=== PATIENT | female | born 1930 | race Caucasian/White ===

== ENCOUNTER 2017-05-23 21:18 | Emergency (ER) | payer MEDICARE ==
[~2017-05-23] VITALS: Ht 142.2 cm; Wt 59.0 kg
[~2017-05-23 21:18] MED LIST: ACETAMINOPHEN PO; ALLEGRA ALLERG180 MG PO; ALLEGRA PO; AMARYL PO; AMARYL2 MG PO; AMBIEN PO; AMIODARONE PO; ARTHRITIS PAIN650 M2 PO; AVANDIA PO; BENADRYL25 MG PO; CORDARONE200 M1 PO; COUMADIN PO; COUMADIN1 MG PO; COUMADIN4 MG PO; COZAAR PO; COZAAR100 MG PO; CRESTOR PO; GLUCOPHAGE XR500 MG PO; GLYBURIDE PO; GLYNASE; HYDROCODON-ACE1 EACH PO; KEFLEX PO; LASIX PO; LEVAQUIN PO; MELATONIN3 M1 PO; METFORMIN HCL500 M1 PO; NAMENDA10 MG PO; NORCO 5/325 TAB1 TAB PO; NORVASC10 MG PO; PROTONIX PO; PROTONIX40 MG/BLIS PO; TAMIFLU75 M1 DOB; ULTRAM PO; ZITHROMAX PO; ZOCOR20 MG PO; [UNRECOGNIZED DRUG - OTHER] PO
== END 2017-05-23 22:36 | disposition left against medical advice (07) ==
LOC: CED 21:18 → CFTX 22:26 → CED 22:26 → CFTX 22:36
DX: Z53.21 Procedure and treatment not carried out due to patient leaving prior to being seen by health care provider (principal)

== ENCOUNTER 2017-05-25 21:36 | Emergency (ER) | payer MEDICARE ==
[~2017-05-25] VITALS: Ht 142.2 cm; Wt 59.0 kg
--- NOTE | ~2017-05-25 | CR72 ---
[facility] A Service of [facility] RADIOLOGY TEXT RESULTS PATIENT: SARAH FARNSWORTH LOCATION: [facility] : 32 UNIT #: [id number] AGE: [address]: Inderjit Barr MD SEX: F ORDER DR: [id number] [facility] [address] [place], [place] [address] [id number] MR#: [id number] #: [id number] NAME: SARAH FARNSWORTH : 1930 SEX: F STUDY DATE/TIME: 05/25/2017 23:00 UNIT: [facility] ROOM: STUDY DESCRIPTION: CR Chest Single View Portable Attending Physician: Inderjit Barr M.D. Ordering Physician: Inderjit Barr M.D. Primary Care Physician: Primary Care Physician No MEDICAL IMAGING REPORT This report is preliminary unless electronic signature is present EXAM Chest x-ray, 05/25/2017 HISTORY 86-year-old female in the ED complaining of 3-month history of shortness of air and chest pain. TECHNIQUE AP portable chest x-ray FINDINGS Shallow lung expansion with mild atelectasis and/or scarring in both lung bases. The lungs are otherwise clear. Mild cardiomegaly. Pulmonary vascularity is within normal limits. Accounting for differences in technique, there has been no significant change since the PA examination of 11/15/2016. IMPRESSION 1. No active disease. 2. Shallow lung expansion with scarring or atelectasis in the lung bases. Dictated by... Tristian Hester M.D. THIS IS AN ELECTRONICALLY VERIFIED REPORT Tristian Hester M.D. at 05/26/2017 3:53 PM NATHALIA/rocky TD: 05/26/2017 11:42 JOB #: [id number] MEDICAL IMAGING REPORT Page 1 of 1 COPY
--- NOTE | ~2017-05-25 | EKG ---
PATIENT: SARAH FARNSWORTH UNIT #: [id number] Ventricular Rate: 87 BPM Atrial Rate: 87 BPM P-R Interval: 234 ms QRS Duration: 84 ms Q-T Interval: 374 ms QTC Calculation(Bezet): 450 ms P Felton: 66 degrees Calculated R Felton: -25 degrees Calculated T Felton: 103 degrees Diagnosis Line: Sinus rhythm with 1st degree A-V block with Diagnosis Line: Premature atrial complexes Diagnosis Line: Minimal voltage criteria for LVH, may be normal Diagnosis Line: variant Diagnosis Line: Poor R wave progression questionable lead position Diagnosis Line: or body habitus Diagnosis Line: Nonspecific ST and T wave abnormality Diagnosis Line: Abnormal ECG Diagnosis Line: No previous ECGs available Diagnosis Line: Confirmed by JEIMY CAMACHO MD ([id number]) on Diagnosis Line: 05/27/2017 4:47:12 PM INTERPRETING MD: GILLES
[2017-05-25 23:20] LABS: POC - CKMB 1.2 ng/mL (0.0-7.9); POC - TROPONIN <0.05 ng/mL (<=0.05)
[2017-05-25 23:21] LABS: URINE SOURCE CLEAN CATCH
[2017-05-25 23:30] LABS: BASOPHIL# 0.1 X10e3 (0-0.3); BASOPHIL% 0.7 % (0-2.5); EOSINOPHIL# 0.2 X10e3 (0-0.7); EOSINOPHIL% 2.1 % (0.0-7.0); HEMATOCRIT 31.5 % (35.0-45.0); HEMOGLOBIN 10.6 gm/dL (12.0-16.0); LYMPHOCYTE# 2.2 X10e3 (1.0-3.5); LYMPHOCYTE% 26.3 % (17.0-45.0); MEAN CELL VOLUME 95.8 FL (83-96); MEAN CORPUSCULAR HEMOGLOBIN 32.2 PG (28-34); MEAN CORPUSCULAR HGB CONC 33.6 g/dL (30-36); MEAN PLATELET VOLUME 7.2 FL (6.5-11.5); MONOCYTE# 0.5 X10e3 (0-1.0); MONOCYTE% 5.5 % (3.0-12.0); NEUTROPHIL# 5.4 X10e3 (1.5-7.1); NEUTROPHIL% 65.4 % (40-75); PLATELET COUNT 336 X10e3 (140-420); RED BLOOD COUNT 3.29 X10e (3.90-5.30); RED CELL DISTRIBUTION WIDTH 14.5 % (11.0-15.5); WHITE BLOOD COUNT 8.2 X10e3 (4.0-10.5)
[2017-05-25 23:32] LABS: URINE APPEARANCE CLEAR; URINE BILIRUBIN NEG (NEG); URINE BLOOD NEG (NEG); URINE COLOR YELLOW; URINE GLUCOSE NEG (NEG); URINE KETONE NEG (NEG); URINE LEUKOCYTE ESTERASE 1+ (NEG); URINE NITRATE NEG (NEG); URINE PH 5.5 (5-8); URINE PROTEIN 1+ (NEG); URINE SPECIFIC GRAVITY 1.013 (1.003-1.035); URINE UROBILINOGEN 0.2 MG/DL (NEG)
[2017-05-25 23:36] LABS: CULTURE INDICATED? YES; URBCS1 AUWI 0-2 /[HPF] (0-2); URINE BACTERIA AUWI NEG (NEGATIVE); URINE SQUAMOUS EPITHELIAL CELL OCC /[HPF]
[2017-05-25 23:37] LABS: DIFF IND NO
[2017-05-25 23:46] LABS: URINE AMORPHOUS SEDIMENT AMORP URATES
[2017-05-25 23:54] LABS: INR 2.2; PARTIAL THROMBOPLASTIN TIME 31.4 SECONDS (23.5-31.3); PROTHROMBIN TIME (PATIENT) 23.9 SECONDS (10.0-11.7)
[2017-05-26 00:04] LABS: ALBUMIN SERUM 3.9 g/dL (3.5-5.0); BILIRUBIN, DIRECT 0.1 mg/dL (0.0-0.2); BILIRUBIN,INDIRECT 0.1 mg/dL (0.0-0.9); BILIRUBIN,TOTAL 0.2 mg/dL (0.2-2.0); BUN/CREATININE RATIO 16.47; CALCIUM SERUM 9.5 mg/dL (8.4-10.2); CREATININE SERUM 1.7 mg/dL (0.6-1.4); POTASSIUM 4.3 mmol/L (3.5-5.1); PROTEIN TOTAL SERUM 7.6 g/dL (6.0-8.3)
[2017-05-26 01:26] LABS: POC - CKMB <1.0 ng/mL (0.0-7.9); POC - TROPONIN <0.05 ng/mL (<=0.05)
== END 2017-05-26 01:52 | disposition home or self-care (01) ==
LOC: CED 21:36
PROVIDERS: Emergency Medicine
DX: R06.02 Shortness of breath (principal); N28.9 Disorder of kidney and ureter, unspecified; E11.9 Type 2 diabetes mellitus without complications; J45.909 Unspecified asthma, uncomplicated; I10 Essential (primary) hypertension; K21.9 Gastro-esophageal reflux disease without esophagitis; Z90.49 Acquired absence of other specified parts of digestive tract; Z88.0 Allergy status to penicillin
CPT/HCPCS: 36415; 71010; 80048; 80076; 81003; 82553; 83605; 83880; 84484; 85025; 85610; 85730; 87040; 87086; 93005; 99285